=== PATIENT | male | born 1960 | race Caucasian/White ===

== ENCOUNTER 2017-07-25 13:37 | Emergency (ER) | payer OTHER | END 2017-07-25 16:20 | disposition home or self-care (01) | LOC: D.ER 13:37 | DX: S29.012A Strain of muscle and tendon of back wall of thorax, initial encounter (principal); W01.0XXA Fall on same level from slipping, tripping and stumbling without subsequent striking against object, initial encounter; Y93.89 Activity, other specified; Y92.019 Unspecified place in single-family (private) house as the place of occurrence of the external cause; S16.1XXA Strain of muscle, fascia and tendon at neck level, initial encounter; S30.0XXA Contusion of lower back and pelvis, initial encounter; I10 Essential (primary) hypertension; H91.90 Unspecified hearing loss, unspecified ear ==